=== PATIENT | female | born 1990 | race Caucasian/White ===

== ENCOUNTER 2023-06-13 16:42 | Outpatient (REF) | payer MEDICAID, SELFPAY ==
[2023-06-13 15:54] LABS: Hemoglobin A1C 4.7 % (<5.7)
[2023-06-13 15:56] LABS: ALT 20 U/L (14-59); AST 20 U/L (15-37); Albumin 4.3 g/dL (3.4-5.0); Alkaline Phosphatase 59 U/L (46-116); Anion Gap 7.7 mmol/L (3-11); BUN 16 mg/dL (7-18); CO2 27.3 mmol/L (21.0-32.0); CREATININE 0.6 mg/dL (0.55-1.02); Calcium 9.5 mg/dL (8.5-10.1); Calculated LDL 106 mg/dL (<100); Chloride 105 mmol/L (98-107); Cholesterol 180 mg/dL (<200); Estimated GFR 122.99 (mL/min/1.73m2); Glucose 80 mg/dL (74-106); HDL Cholesterol 65 mg/dL (40-60); Potassium 4.1 mmol/L (3.5-5.1); Sodium 140 mmol/L (136-145); TSH (W/Ref FT4) 1.36 uIU/mL (0.36-3.74); Total Protein 8.2 g/dL (6.4-8.2); Triglyceride 45 mg/dL (<150)
[2023-06-13 22:38] LABS: Hepatitis C Ab w Rflx HCV PCR Negative (Negative)
[2023-06-13 22:43] LABS: HIV-1/2 Ag & Ab Screen Negative (Negative)
[2023-06-14 11:39] LABS: Syphilis Serology (RPR) Negative (Negative)
[2023-06-14 14:53] LABS: Chlamydia Result Negative (Negative); GC Result Negative (Negative)
== END 2023-06-13 16:43 | disposition home or self-care (01) ==
LOC: NCHCN 16:42
PROVIDERS: Referring Provider Nurse Practitioner Family; Visit Provider Nurse Practitioner Family
DX: Z13.220 Encounter for screening for lipoid disorders (principal); Z13.1 Encounter for screening for diabetes mellitus; Z11.59 Encounter for screening for other viral diseases
CPT/HCPCS: 80053; 80061; 86803; 87389; 87491; 87591; 83036; 84443; 86592

== ENCOUNTER 2023-08-26 12:25 | Outpatient (REF) | payer MEDICAID, SELFPAY ==
--- NOTE | 2023-08-26 11:45 | PAPFT_PTH ---
PATIENT: Anisa Farmer LOC: NCN #:[id number] AGE/SX: 33/F ROOM: RE08/26/[address]: LAISHA ERAZO : 1990 BED: DIS: 08/26/2023 SPEC #: [id number] RECD: 08/26/23 18:10 STATUS: LTEY REQ #: [id number] CARLEE: 08/26/23 11:[address]: Laisha Erazo DEPT: [facility] Cytology RECD BY: Morena Valencia Tissues: 1 - CX/ENDOCX FOR PAP SMEARS Procedures: PAP THIN PREP/UVM Screening HPV DNA PROBE Comments: [id number]
== END 2023-08-26 12:26 | disposition home or self-care (01) ==
LOC: NCHCN 12:25
PROVIDERS: PCP Nurse Practitioner Family; Visit Provider Nurse Practitioner Family
DX: Z00.00 Encounter for general adult medical examination without abnormal findings (principal); Z12.4 Encounter for screening for malignant neoplasm of cervix; Z11.51 Encounter for screening for human papillomavirus (HPV)
CPT/HCPCS: 88142; 87624

== ENCOUNTER 2024-05-04 13:21 | Observation (INO) | payer BC, MEDICAID, SELFPAY ==
[2024-05-04] VITALS (8 sets, daily range): BP systolic 119–145; BP diastolic 84–106; PULSE 68–87; RESP 12–16; TEMP 36.4–37.4; O2SAT 95–100
--- NOTE | 2024-05-04 13:30 | RT.EKG_ITS ---
APPROVED REPORT Exam: Resting ECG Reason for Exam: Left weakness Patient Location: E HR:80 bpm ECG Measurements Heart Rate 80 AXIS SD 136 P 81 QRSd 83 QRS 75 QT 351 T 57 QTc 406 Conclusion Sinus rhythm...normal P axis, V-rate 60- 99 No STEMI
--- NOTE | 2024-05-04 13:30 | DI.CT_ITS ---
Exam(s) CT BRAIN NECK CTA EXAM: CT BRAIN NECK CTA CLINICAL HISTORY: Left-sided weakness. TECHNIQUE: Imaging Protocol: Axial CT angiography was performed with multi-slice acquisition and mu lti-planar and MIP reconstructions. CONTRAST MATERIAL: Intravenous: Omnipaque 350 Contrast volume:70 ml COMPARISON: No exams were available for comparison FINDINGS: CT Head W/O and W contrast: Ventricles and Extra axial spaces: Normal in size and morphology for the patient's age. Hemorrhage: None. Cerebral parenchyma: No evidence of acute infarct or mass. Midline shift: None. Brainstem/Cerebellum: No acute findings.. Calvarium: Normal. Visualized Paranasal sinuses/Mastoids: Clear. Soft Tissues: Unremarkable. Enhancement: Normal. Venous sinuses are patent. CTA Brain W: Internal Carotid Arteries: Petrous: Normal. Cavernous: Normal. Cerebral: Normal. Middle Cerebral Arteries: Right: No aneurysm, occlusion or significant stenosis. Left: No aneurysm, occlusion or significant stenosis. Anterior Cerebral Arteries: Right: No aneurysm, occlusion or significant stenosis. Left: No aneurysm, occlusion or significant stenosis. Posterior cerebral Arteries: Right: No aneurysm, occlusion or significant stenosis. Left: No aneurysm, occlusion or significant stenosis. Vertebral Arteries: Right: No aneurysm, occlusion or significant stenosis. Left: No aneurysm, occlusion or significant stenosis. Basilar Artery: No aneurysm, occlusion or significant stenosis. CTA Neck W: Common Carotid: Right: No dissection, occlusion or significant stenosis. Left: No dissection, occlusion or significant stenosis. External Carotid: Right: No dissection, occlusion or significant stenosis. Left: No dissection, occlusion or significant stenosis. Internal Carotid: Right: No dissection, occlusion or significant stenosis. Left: No dissection, occlusion or significant stenosis. Vertebral Artery: Right: No dissection, occlusion or significant stenosis. Left: No dissection, occlusion or significant stenosis. Lung Apices: No acute findings. Bones: No acute abnormality. Soft Tissues: Normal. IMPRESSION: 1. CTA brain: Normal CTA examination of the [place]. 2. Head CT: Unremarkable CT Head. 3. CTA neck: Normal CTA examination of the neck. RADIATION DOSE DELIVERED: 1,951.61mGy.cm Total DLP DATA REPOSITORY: All CT scans at this facility are submitted to the National Radiology Data Registry (NRDR) Dose Index Registry (DIR) with the [employer] (A[employer]). RADIATION OPTIMIZATION: All CT scans at this facility use at least one of these dose optimization te chniques: automated exposure control; mA and/or kV adjustment per patient size (includes targeted exa ms where dose is matched to clinical indication); or iterative reconstruction.
--- NOTE | 2024-05-04 13:30 | DI.RAD_ITS ---
Exam(s) XR CHEST 2V PA LATERAL EXAM: XR CHEST 2V PA LATERAL CLINICAL HISTORY: Left weakness TECHNIQUE: 2D digital imaging was performed. Two views. COMPARISON: No exams were available for comparison FINDINGS: HEART: Normal size. Aorta: Not dilated. PULMONARY VASCULATURE: Normal. MEDIASTINUM: Unremarkable. LUNGS: Clear. PLEURAL SPACE: No pleural effusion or pneumothorax. BONE:Unremarkable for age. SOFT TISSUES: There is contrast in the right renal collecting system related to recent head CT. The collecting system appears somewhat dilated. Findings could be acute or chronic. Clinical correlatio n recommended. IMPRESSION: No acute abnormality in the chest. Dilated right renal collecting system. Ultrasound or CT could be performed for further evaluation. DATA REPOSITORY: RADIATION DOSE DELIVERED:
--- NOTE | 2024-05-04 13:33 | W.ED.GENAD ---
Discharge Plan Discharge Details Chief Complaint: CVA/TIA Admit Date/Time: 05/04/24 15:55 Admit Provider: Wesly Maria Attending Provider: Wesly Maria Primary Care Provider: Laisha Erazo ED Provider: Antonio Perry Discharge Data Discharge Date/Time-TO BE ENTERED AT DEPARTURE: 05/04/24 16:38 HPI General Date/Time Provider Initiated Documentation: 05/04/24 13:30. HPI Narrative: MDM This is an overall very well-appearing previously healthy 33-year-old female with concerns for TIA for which she will undergo MRI. I spoke with neurology and they advised clopidogrel load along with aspirin. Patient is not a tPA candidate given her resolved symptoms. MS is certainly in the differential based on the patient's age and sex. No tonic-clonic activity to suggest increased risk for seizure though neurology advises EEG. No nuchal rigidity to suggest meningitis and no indication for lumbar puncture. Patient will certainly benefit from an echocardiogram to assess for ASD. Her electrolytes and labs reassuring. Chest x-ray was reassuring and so my suspicion is low for dissection in the absence of chest pain. I spoke with Dr. Maria from the hospitalist team who graciously agreed to accept the patient for hospitalization. Chronic conditions affecting the care of the patient: N/A History obtained from an outside historian: Patient's External record review: N/A [Diagnostic interpretations performed by me: Per my independent interpretation chest x-ray shows: No acute cardiopulmonary process. Contrast right renal collecting system Per my independent interpretation EKG shows: Narrow complex normal sinus rhythm at a rate of 80. Normal axis. Intervals within normal limits. No acute injury pattern. No prior for comparison. ]Medications: Aspirin clopidogrel Social determinants of health affecting disposition: N/A Management discussed with: Neurology hospitalist Treatment/interventions considered: N/A Response to therapies provided: N/A HPI The patient presents for evaluation of left foot weakness. She is accompanied by her . She reports a sensation of heaviness in her left foot upon standing and attempting to ambulate. Her corroborates this, noting that she had communicated with him from her workplace, expressing discomfort and a generalized feeling of heaviness on the left side of her body. She experienced a transient episode of staggering to the left after a brief period of sitting. Although the intensity of these symptoms has since diminished, she continues to experience a residual sensation of heaviness. This is a novel experience for her, with no prior history of similar episodes. She does not have any known hypertension and is not on any regular medication regimen. Her immunization status is up-to-date. She reports no chest pain. She has no personal history of diabetes or hypercholesterolemia, although she acknowledges a significant family history of these conditions. Her health status was unremarkable yesterday and earlier this morning. She currently feels slightly unwell. She describes a sensation omi to pins and needles in her foot but reports no recent falls or head trauma. The onset of these symptoms was around 12:57 PM today. 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 She reports a significant family history of diabetes and high cholesterol. Exam General: Well-appearing in no acute distress speaking in complete sentences. Head: Normocephalic, atraumatic. Eye:[Pupils equal, round reactive to light.] Extraocular eye movements intact. No conjunctival injection. No scleral icterus. Ear, nose, mouth, throat: Grossly normal inspection. Normal voice, handling secretions normally. Neck: Trachea midline. Cardiovascular: Well-perfused distal extremities. Regular rate and rhythm. Respiratory: Nonlabored respiration. Clear lungs bilaterally. Gastrointestinal: Nondistended abdomen. Musculoskeletal: No edema. Moving all 4 extremities spontaneously. Skin: Normal for age and race, grossly normal temperature and turgor. No acute rash. Neurologic: Alert and appropriate, no apparent acute deficits. GCS 15. Cranial nerves II to XII intact grossly. 5 out of 5 bilateral upper lower extremity strength. Psychiatric: Mood and manner are appropriate. Grooming and personal hygiene are appropriate. Related Data Home Medications ?Medication ?Instructions ?Recorded ?Confirmed Unknown [No Known Home Meds] 05/04/24 05/04/24 Allergies Allergy/AdvReac Type Severity Reaction Status Date / Time No Known Allergies Allergy Unverified 05/04/24 13:31 General Stated Complaint: CVA/TIA MIKE: 3 Course Vital Signs Vital signs: Vital Signs Temperature 36.4 C 05/04/24 13:22 Pulse 86 05/04/24 13:22 Respiratory Rate 12 05/04/24 13:22 Blood Pressure 145/106 H 05/04/24 13:22 Pulse Oximetry 99 05/04/24 13:22 Temperature 36.4 C 05/04/24 13:22 Temperature Source Oral 05/04/24 13:22 Pulse 86 05/04/24 13:22 Respiratory Rate 12 05/04/24 13:22 Blood Pressure 145/106 H 05/04/24 13:22 Blood Pressure Position Sitting 05/04/24 13:22 Pulse Oximetry 99 05/04/24 13:22 Oxygen Delivery Method Room Air 05/04/24 13:22 Oxygen Flow Rate 0 05/04/24 13:22 Pain Level 0 05/04/24 13:22 Medical Decision Making Quality:SDOH Health Related Social Needs: No Data to Display PFSH All Active Problems (Updated 05/04/24 @ 20:02 by Viviana Aparicio NP) CVA (cerebral vascular accident) (Acute) Social History Smoking/Tobacco Use Status: Never Smoking risk assessment performed?: Yes Alcohol Intake: never Drug use: Never Substance use type: does not use Housing: house Do you feel safe at home: Yes Do you feel safe in your relationship?: Yes
[2024-05-04] MEDS: Omnipaque 350 MG/ML 100 ML BTL IJ (13:44)
[2024-05-04] MEDS: Normal Saline - Diluent 50 ML VIAL IJ (13:44)
[2024-05-04 13:58] LABS: Bilirubin Negative (Negative); Blood Negative (Negative); Clarity Clear (Clear); Glucose Negative (Negative); Ketones Negative (Negative); Leukocyte Esterase Negative (Negative); Nitrite Negative (Negative); Urobilinogen 0.2 mg/dL (Up to 0.2); pH 6.5 (5-8)
[2024-05-04 14:07] LABS: HCG Qual (Serum) Negative
[2024-05-04 14:10] LABS: Prothrombin Time 10.5 sec (9.1-11.1)
[2024-05-04 14:29] LABS: Anion Gap 6.2 mmol/L (3-11); BUN 14 mg/dL (7-18); CO2 31.8 mmol/L (21.0-32.0); CREATININE 0.8 mg/dL (0.55-1.02); Calcium 9.8 mg/dL (8.5-10.1); Chloride 104 mmol/L (98-107); Estimated GFR 100.33 (mL/min/1.73m2); Glucose 103 mg/dL (74-106); Potassium 3.4 mmol/L (3.5-5.1); Sodium 142 mmol/L (136-145); Troponin I 4 ng/L (<or=51)
[2024-05-04 14:31] LABS: ETHANOL BLOOD < 3.0 mg/dL (<10)
--- NOTE | 2024-05-04 14:45 | DI.MRI_ITS ---
Exam(s) MR BRAIN WO/W EXAM: MR BRAIN WO/W CLINICAL HISTORY: left-sided weakness TECHNIQUE: Multiplanar multisequence MRI of the brain was performed. CONTRAST MATERIAL: IV Contrast: 8 mL of [place] contrast administered. COMPARISON: CT CT BRAIN NECK CTA from 05/04/2024 FINDINGS: VENTRICLES AND EXTRA AXIAL SPACES: Normal in size and morphology for the patient's age. HEMORRHAGE: None. CEREBRAL PARENCHYMA: There is a single punctate focus of restricted diffusion in the right parietal l obe just superior to the lateral ventricle. No space-occupying lesion identified. MIDLINE SHIFT: None. BRAINSTEM/CEREBELLUM: Normal. CALVARIUM: Normal. ENHANCEMENT: No suspicious enhancement identified. VISUALIZED PARANASAL SINUSES/MASTOIDS: Mucous retention cysts or polyps are seen in the maxillary sin uses bilaterally. [place]: Normal flow void. PIT[place]ARY GLAND: Unremarkable. OTHER FINDINGS: IMPRESSION: 1. Small 3 mm focus of restricted diffusion in the high right parietal lobe suspicious for an acute i nfarct. 2. Findings were discussed with Dr. Perry at 4:20 p.m. on 05/04/2024. DATA REPOSITORY:
[2024-05-04] MEDS: Aspirin 81 MG CHEW PO (15:14)
[2024-05-04] MEDS: Clopidogrel 300 MG TAB PO (15:14)
[2024-05-04] MEDS: Gadoterate meglumine 20 ML SYRINGE 8 ML IVP (15:35)
[2024-05-04] MEDS: Normal Saline Flush 10 ML SYR IVP (15:36)
[2024-05-04] MEDS: Potassium Chloride 20 MEQ TABCR PO (16:17)
[2024-05-04 17:17] LABS: HCT 38.9 % (36.0-46.0); HGB 13.3 g/dL (11.2-15.7); MCH 32.8 pg (27.0-33.0); MCHC 34.2 % (32.0-36.0); MCV 96 fL (80-95); MPV 10.7 fL (8.0-11.0); Platelet Count 274 10^3/uL (130-400); RBC 4.05 10^6/uL (3.93-5.22); RDW 10.8 % (11.7-14.6); RDW-SD 38.6 fL; WBC 5.36 10^3/uL (4.4-10.8)
--- NOTE | 2024-05-04 17:23 | W.PC.ACHO ---
Registration Status: Primary Language: Preferred Language: ED Information & Data Chief Complaint CVA/TIA 05/04/24 13:33 Triage Note Patient felt like L side was 05/04/24 13:22 heavy about 1130ish. Sx are resolving, no speech impediment, no ams, no facial drooping. was slightly nauseous when she stood up and felt this for a moment. Most Recent Vital Signs Temperature 37.1 C 05/04/24 17:05 Temperature Source Oral 05/04/24 13:22 Pulse 68 05/04/24 17:05 Pulse Rhythm Regular 05/04/24 16:48 Respiratory Rate 16 05/04/24 17:05 Respiratory Effort Normal, Non-Labored 05/04/24 16:48 Respiratory Depth Normal 05/04/24 16:48 Respiratory Pattern Normal 05/04/24 16:48 Blood Pressure 128/99 H 05/04/24 17:05 Blood Pressure Position Sitting 05/04/24 13:22 Pulse Oximetry 95 05/04/24 17:05 Oxygen Delivery Method Room Air 05/04/24 17:05 Oxygen Flow Rate 0 05/04/24 17:05 Pain Level 0 05/04/24 17:05 Allergies No Known Allergies Allergy (Unverified 05/04/24 13:31) Precautions Isolation Standard precaution 05/04/24 13:29 Active Medications Generic Name Dose Route Start Last Admin Trade Name Freq PRN Reason Stop Dose Admin Aspirin 81 mg 05/05/24 08:30 05/04/24 15:14 Aspirin 81 Mg Chew PO 81 mg DAILY KIRSTEN Administration Gadoterate Meglumine 8 ml 05/04/24 15:45 05/04/24 15:35 Gadoterate Meglumine 20 Ml Syringe IVP 06/03/24 23:59 8 ml DIRECTED KIRSTEN Administration Iohexol 100 ml 05/04/24 13:45 05/04/24 13:44 Omnipaque 350 Mg/Ml 100 Ml Btl IJ 06/03/24 23:59 70 ml DIRECTED KIRSTEN Administration Sodium Chloride 50 ml 05/04/24 13:45 05/04/24 13:44 Normal Saline - Diluent 50 Ml Vial IJ 50 ml .FOR DI USE KIRSTEN Administration Sodium Chloride 0 ml 05/04/24 15:36 05/04/24 15:36 Normal Saline Flush 10 Ml Syr IVP 10 ml PRN PRN Administration IV IV Catheter Type [Right Peripheral IV Antecubital] IV Catheter Gauge [Right 18 Antecubital] Diet Orders Category Date Time Status Heart Healthy Eating [DIET] Nutrition 05/04/24 Dinner Active Diagnostics 05/04/24 05/04/24 05/04/24 Range/Units 16:33 14:33 13:45 WBC (4.4-10.8) 10^3/uL RBC (3.93-5.22) 10^6/uL Hgb (11.2-15.7) g/dL Hct (36.0-46.0) % MCV (80-95) fL MCH (27.0-33.0) pg MCHC (32.0-36.0) % RDW (11.7-14.6) % Plt Count (130-400) 10^3/uL MPV (8.0-11.0) fL PT (9.1-11.1) sec INR (0.9-1.1) Sodium (136-145) mmol/L Potassium (3.5-5.1) mmol/L Chloride (98-107) mmol/L Carbon Dioxide (21.0-32.0) mmol/L Anion Gap (3-11) mmol/L BUN (7-18) mg/dL Creatinine (0.55-1.02) mg/dL Est GFR (CKD-EPI 2020) (mL/min/1.73m2) Glucose (74-106) mg/dL Calcium (8.5-10.1) mg/dL Troponin I Cancelled Cancelled (<or=51) ng/L TSH (0.36-3.74) uIU/mL Serum HCG, Qual Urine Color Yellow (Yellow) Urine Clarity Clear (Clear) Urine pH 6.5 (5-8) Ur Specific [place] 1.010 (1.005-1.025) Urine Protein Negative (Neg-Trace) mg/dL Urine Ketones Negative (Negative) mg/dL Urine Blood Negative (Negative) Urine Nitrite Negative (Negative) Urine Bilirubin Negative (Negative) Urine Urobilinogen 0.2 (Up to 0.2) mg/dL Ur Leukocyte Esterase Negative (Negative) Urine Glucose Negative (Negative) mg/dL Ethyl Alcohol (<10) mg/dL 05/04/24 Range/Units 13:40 WBC 5.36 (4.4-10.8) 10^3/uL RBC 4.05 (3.93-5.22) 10^6/uL Hgb 13.3 (11.2-15.7) g/dL Hct 38.9 (36.0-46.0) % MCV 96 H (80-95) fL MCH 32.8 (27.0-33.0) pg MCHC 34.2 (32.0-36.0) % RDW 10.8 L (11.7-14.6) % Plt Count 274 (130-400) 10^3/uL MPV 10.7 (8.0-11.0) fL PT 10.5 (9.1-11.1) sec INR 1.0 (0.9-1.1) Sodium 142 (136-145) mmol/L Potassium 3.4 L (3.5-5.1) mmol/L Chloride 104 (98-107) mmol/L Carbon Dioxide 31.8 (21.0-32.0) mmol/L Anion Gap 6.2 (3-11) mmol/L BUN 14 (7-18) mg/dL Creatinine 0.8 (0.55-1.02) mg/dL Est GFR (CKD-EPI 2020) 100.33 (mL/min/1.73m2) Glucose 103 (74-106) mg/dL Calcium 9.8 (8.5-10.1) mg/dL Troponin I 4 (<or=51) ng/L TSH 1.30 (0.36-3.74) uIU/mL Serum HCG, Qual Negative Urine Color (Yellow) Urine Clarity (Clear) Urine pH (5-8) Ur Specific [place] (1.005-1.025) Urine Protein (Neg-Trace) mg/dL Urine Ketones (Negative) mg/dL Urine Blood (Negative) Urine Nitrite (Negative) Urine Bilirubin (Negative) Urine Urobilinogen (Up to 0.2) mg/dL Ur Leukocyte Esterase (Negative) Urine Glucose (Negative) mg/dL Ethyl Alcohol < 3.0 (<10) mg/dL Intake and Output - 24 Hour Total 05/04/24 13:21 thru 05/04/24 16:48 Weight 42.6 kg Other: Urine Appearance Clear Falls Risk Assessment History of Falls No History 05/04/24 16:48 Contributing Factors No Factors 05/04/24 16:48 Ambulatory Aids Independent 05/04/24 16:48 Tubes/Lines W/no contributing factors 05/04/24 16:48 Gait Evaluation No gait disturbance 05/04/24 16:48 Cognition No cognitive impairment 05/04/24 16:48 Fall Total Score 10 05/04/24 16:48 Level of Risk Standard/Low Risk 05/04/24 16:48 v v v v v v v v v Sending and/or Receiving Nurses: Please use comment section below to note any information pertinent to the patient hand-off not included above. Information / Comments: Report received from: Corrina Gan 05/04/24
--- NOTE | 2024-05-04 17:41 | W.PM.HP.N ---
Date of service: 05/04/24 Time of Service: 17:41 Assessment and Plan Assessment and plan (1) CVA (cerebral vascular accident): Status: Acute Assessment and plan: MRI - . Small 3 mm focus of restricted diffusion in the high right parietal lobe suspicious for an acute infarct. CT brain and neck: 1. CTA brain: Normal CTA examination of the [place]. 2. Head CT: Unremarkable CT Head. 3. CTA neck: Normal CTA examination of the neck. Tele neuro consult not a candidate for TPA or thrombectomy - no sx and NIHSS 0 Follow recommendations, aspirin, plavix, echo, EEG, lipid profile. Echo, carotid US pending Neuro checks History of Present Illness History of Present Illness Chief Complaint: Left side heaviness Narrative: The patient is a 33-year-old right-handed female who presents for evaluation of left foot weakness. She describes a sensation of heaviness in her left foot, particularly when standing or attempting to walk. Her corroborates this, noting that she communicated from her workplace about discomfort and a generalized feeling of heaviness on the left side of her body. She also experienced a transient episode of staggering to the left after sitting for a brief period. Although the intensity of these symptoms has diminished, she continued to experience some residual heaviness. This is a novel experience for her, with no prior similar episodes. She denies any recent falls or head trauma. The onset of symptoms was sudden, occurring at 12:00 PM while she was working at her computer. The symptoms included difficulty walking, a sensation of heaviness, and effortful ambulation. The symptoms resolved completely within 40 minutes, and she had no deficits at the time of examination. The patient has no known history of hypertension, diabetes, or hypercholesterolemia, although she reports a significant family history of these conditions. She is not on any regular medication regimen. Her immunization status is up-to-date, and she reports no chest pain or other associated symptoms. She feels slightly unwell and describes a sensation of pins and needles in her left foot. The intensity of these sensations is much less than at the time of onset. She denies ever smoking cigarettes, using a vape or drug use. She presented to the [facility] ED for evaluation. A thorough neurologic exam was performed, and her NIH stroke scale was 0. A normal neurological exam was noted, and given the lack of deficits, she was not considered a candidate for thrombolytics or thrombectomy. A teleneuro consultation was completed. Imaging studies were conducted, including: CTA brain: Normal, with no abnormalities noted in the [place]. Head CT: Unremarkable. CTA neck: Normal. MRI brain: Notable for a small (3 mm) focus of restricted diffusion in the high right parietal lobe, which is suspicious for an acute infarct. Given the resolution of symptoms, the patient was placed on observation status on the medical floor for further testing and monitoring. She is a full code. Review of Systems All systems reviewed & are unremarkable except as noted in HPI and below PFSH All Active Problems (Updated 05/04/24 @ 20:02 by Viviana Aparicio NP) CVA (cerebral vascular accident) (Acute) Social History Smoking/Tobacco Use Status: Never Smoking risk assessment performed?: Yes Alcohol Intake: never Drug use: Never Substance use type: does not use Housing: house Do you feel safe at home: Yes Do you feel safe in your relationship?: Yes Meds Allergies and Home Medications Allergies Allergy/AdvReac Type Severity Reaction Status Date / Time No Known Allergies Allergy Unverified 05/04/24 13:31 Home Medications ?Medication ?Instructions ?Recorded ?Confirmed ?Type aspirin 81 mg chewable tablet 81 mg PO DAILY #20 tabs 05/05/24 Rx clopidogrel 75 mg tablet (Plavix) 75 mg PO DAILY #20 tabs 05/05/24 Rx Exam Narrative Exam Narrative: Const General: no acute distress Nutritional Appearance: average body habitus [facility] Head: normocephalic Ears: external ears normal and no periauricular adenopathy General nose exam: nasal mucous membranes and turbinates normal Face and sinus: sinuses nontender Mouth: oropharynx normal and moist mucous membranes Teeth and gingiva: dentition normal Eyes General: appearance normal, both eyes and all related structures Pupils: PERRL Neck Neck: normal visual inspection and no lymphadenopathy Chest Chest: normal inspection of the chest Resp Effort & Inspection: normal respiratory effort Auscultation: no rales, no rhonchi and no wheezes expiratory Cardio Rate: tachycardic Rhythm: regular rhythm Heart Sounds: S1 normal, S2 normal and no murmurs Pulses: radial pulses present bilaterally GI Inspection: normal to inspection Palpation: soft Skin General skin exam: no rashes or lesions noted Neuro General: patient alert, patient awake and patient oriented x3 Extrem General: no clubbing, cyanosis or edema Psych Mental Status: mental status grossly normal Affect: normal affect Attitude: cooperative Results Labs 05/05/24 06:30 05/05/24 06:30 Labs: Laboratory Results - last 24 hr 05/04/24 05/04/24 05/04/24 13:40 13:45 14:33 WBC 5.36 RBC 4.05 Hgb 13.3 Hct 38.9 MCV 96 H MCH 32.8 MCHC 34.2 RDW 10.8 L Plt Count 274 MPV 10.7 PT 10.5 INR 1.0 Sodium 142 Potassium 3.4 L Chloride 104 Carbon Dioxide 31.8 Anion Gap 6.2 BUN 14 Creatinine 0.8 Est GFR (CKD-EPI 2020) 100.33 Glucose 103 Calcium 9.8 Troponin I 4 Cancelled TSH 1.30 Serum HCG, Qual Negative Urine Color Yellow Urine Clarity Clear Urine pH 6.5 Ur Specific [place] 1.010 Urine Protein Negative Urine Ketones Negative Urine Blood Negative Urine Nitrite Negative Urine Bilirubin Negative Urine Urobilinogen 0.2 Ur Leukocyte Esterase Negative Urine Glucose Negative Ethyl Alcohol < 3.0 05/04/24 16:33 WBC RBC Hgb Hct MCV MCH MCHC RDW Plt Count MPV PT INR Sodium Potassium Chloride Carbon Dioxide Anion Gap BUN Creatinine Est GFR (CKD-EPI 2020) Glucose Calcium Troponin I Cancelled TSH Serum HCG, Qual Urine Color Urine Clarity Urine pH Ur Specific [place] Urine Protein Urine Ketones Urine Blood Urine Nitrite Urine Bilirubin Urine Urobilinogen Ur Leukocyte Esterase Urine Glucose Ethyl Alcohol Last Vital Signs Temp 37.1 C 05/04/24 17:05 Pulse 68 05/04/24 17:05 Resp 16 05/04/24 17:05 BP 128/99 H 05/04/24 17:05 Pulse Ox 95 05/04/24 17:05 Time Spent Time spent with Patient: 55-74 minutes Time was spent: preparing to see the patient(eg.review tests), ordering medications,tests, procedures, referring, communicating with other health animal care service worker, indepentently interpreting results, counseling the patient and care coordination
[2024-05-04 20:31] LABS: Calculated LDL 90 mg/dL (<100); Cholesterol 183 mg/dL (<200); HDL Cholesterol 82 mg/dL (40-60); Triglyceride 55 mg/dL (<150)
[2024-05-05 03:33] VITALS: BP 120/80; PULSE 83; RESP 18; TEMP 37.6; O2SAT 99
[2024-05-05 06:51] LABS: Abs Immature Grans 0.01 10^3/uL (0.0-0.06); Absolute Basophil Count 0.04 10^3/uL (0.0-0.2); Absolute Eosinophil Count 0.27 10^3/uL (0.0-0.7); Absolute Lymphocyte Count 1.99 10^3/uL (1.2-3.4); Absolute Monocyte Count 0.25 10^3/uL (0.1-0.8); Absolute Neutrophil Count 1.63 10^3/uL (1.2-6.7); Eosinophils % 6.4 %; HCT 37.9 % (36.0-46.0); HGB 13.1 g/dL (11.2-15.7); Immature Grans % 0.2 %; Lymphocytes % 47.5 %; MCH 32.7 pg (27.0-33.0); MCHC 34.6 % (32.0-36.0); MCV 95 fL (80-95); MPV 10.6 fL (8.0-11.0); Neutrophils % 38.9 %; Platelet Count 231 10^3/uL (130-400); RBC 4.01 10^6/uL (3.93-5.22); RDW 10.6 % (11.7-14.6); RDW-SD 37.4 fL; WBC 4.19 10^3/uL (4.4-10.8)
[2024-05-05 07:06] LABS: Anion Gap 5.2 mmol/L (3-11); BUN 13 mg/dL (7-18); CO2 27.8 mmol/L (21.0-32.0); CREATININE 0.7 mg/dL (0.55-1.02); Calcium 8.4 mg/dL (8.5-10.1); Chloride 107 mmol/L (98-107); Estimated GFR 117.77 (mL/min/1.73m2); Glucose 83 mg/dL (74-106); Magnesium 1.7 mg/dL (1.8-2.4); Potassium 4.4 mmol/L (3.5-5.1); Sodium 140 mmol/L (136-145)
[2024-05-05 07:49] VITALS: BP 117/82; PULSE 85; RESP 18; TEMP 37.1; O2SAT 100
[2024-05-05] MEDS: Clopidogrel 75 MG TAB PO (08:58)
[2024-05-05] MEDS: Aspirin 81 MG CHEW PO (08:59)
--- NOTE | 2024-05-05 09:57 | DI.US_ITS ---
APPROVED REPORT EXAM: Comprehensive 2D, Doppler, and color-flow Echocardiogram Patient Location: In-Patient Room/Bed: [facility] Cell Geneticist: Jaz Daley RDCS (AE) Indications: CVA Echo Enhancing Agent Indication: Rule out Shunt Agent(s) / Amount(s) Used: Agitated Saline 30.0 cc Comments: Contrast study was performed with 3 IV injections of 10ccs of agitated normal saline, at [facility], with cough and post valsalva maneuver. Negative contrast study for shunt flow. Other Information Study Quality: Adequate Conclusion Normal left ventricular wall thickness and chamber size. Ejection fraction is 60%. Wall motion is n ormal Normal right ventricular size and function Both atria are normal in size No intracardiac shunting is identified with injection of agitated saline There is no structural or hemodynamically significant valvular disease Wall motion Left Ventricle The left ventricle is normal size. The left ventricular systolic function is normal. The left ventric ular ejection fraction is within the normal range. There is normal left ventricular wall thickness. T here is normal LV segmental wall motion. There is no ventricular septal defect visualized. LVEF is 60 %. Right Ventricle The right ventricle is normal size. The right ventricular systolic function is normal. Atria The left atrium size is normal. The right atrium size is normal. The interatrial septum is intact wit h no evidence for an atrial septal defect. Saline bubble contrast intravenous injection does not demo nstrate PFO. Aortic Valve The aortic valve is normal in structure. Aortic valve is trileaflet. There is no aortic valvular sten osis. No aortic regurgitation is present. Mitral Valve The mitral valve is normal in structure. No evidence of mitral valve stenosis. Trace mitral regurgita tion. Tricuspid Valve The tricuspid valve is normal in structure. There is no tricuspid valve stenosis. Trace tricuspid reg urgitation. The RVSP is 14.4 mmHg. Pulmonic Valve The pulmonary valve is normal in structure. There is no pulmonic valvular stenosis. There is no pulmo len valvular regurgitation. Great Vessels The aortic root is normal in size. Ascending aorta is not well visualized. Aortic arch is normal in c aliber. IVC is normal in size and collapses >50% with inspiration. Pericardium There is no pericardial effusion. 2D Dimensions IVSD d PLAX 0.70 cm F: 0.6-1.0 Ao Root d 2.46 cm F: 2.7 - 3.3 LVPW d PLAX 0.70 cm F: 0.6 - 1.0 LVID d PLAX 3.93 cm F: 3.8 - 5.2 LVDs 2.70 cm F: 2.2 - 3.5 LV EF Teichholz 61.1 % FS 32.23 % LV EDV (Teich) 67.0 mL LV ESV (Teich) 26.1 mL M-Mode TAPSE 1.66 cm (M/F) >1.7 Auto EF LV EDV A4C 69.0 mL LV EDV A2C 82.0 mL LV EDV BP 76.3 mL LV ESV A4C 27.7 mL LV ESV A2C 32.6 mL LV ESV BP 30.1 mL LVEF(%) A4C 59.8 % LVEF(%) A2C 60.3 % LVEF(%) BP 60.6 % LV SV A4C 41.3 ml LV SV A2C 49.4 ml LV SV BP 46.2 ml LV CO A4C 3.7 L/min LV CO A2C 4.0 L/min LV CO BP 3.9 L/min HR A4C 89.56 BPM HR A2C 81.63 BPM LV EDV Index (BP) LA Volume LA Length A4C 3.6 cm LA Length A2C LA Area A4C s 8.97 cm2 LA Area A2C s LA Vol A4C A-L 18.81 mL LA Vol A2C A-L LA Vol Biplane A-L LA Vol A4C MOD 17.6 mL LA Vol A2C MOD LA Vol BP MOD RA Volume RA Area A4C 8.5 cm2 RA ESV A4C (A-L) 17.2mL RA Vol/BSA A4C A-L RA Length A4C 3.6 cm RA ESV A4C (MOD) 15.9mL LV Diastology MV E' medial 0.123 (>0.07 m/s) MV E Vmax 0.83 (0.4-1.3 m/s) MV E/E' MED 6.78 (<14) MV A Vmax 0.70 (0.4-1.3 m/s) MV E' lateral 0.146 (>0.1 m/s) E/A Ratio 1.2 MV E/E' LAT 5.70 (<14) MV E' Average 0.135 m/s MV E/E'(average) 6.19 Aortic Valve AoV Vmax 1.09 m/s LVOT Vmax 1.00 m/s AoV Peak Grad 4.8 mmHg LVOT Peak Grad 4.0 mmHg AoV Area (Vmax) 2.42 cm2 LVOT VTI 0.160 m AoV VTI 0.200 m LVOT Mean Grad 1.9 mmHg AoV Mean Wei. 0.80 m/s LVOT SV 42.24 mL AoV Mean Grad 2.8 mmHg LVOT Diam s 1.80 cm AoV Area (VTI) 2.11 cm2 AV Regurg Peak Gr. 4.75 mmHg Velocity Ratio 0.92 Mitral Valve MV DT 187 (160-240 msec) MV Vmax TIPS 0.83 m/s MV Mean Grad 1.3 (<2mmHg) MV VTI 0.205 m Pulmonary Valve PV Vmax 0.82 (0.5-1.5 m/s) RVOT Vmax 0.72 m/s PV Peak Grad 2.7 mmHg RVOT Peak Gr. 2.0 mmHg PV Mean Wei 0.57 m/s RVOT VTI 0.149 m PV Mean Grad 1.5 mmHg RVOT Mean Gr. 1.4 mmHg Tricuspid Valve RA Pressure 3.00 mmHg TR Vmax 1.69 m/s TV S' 0.14 m/s TR Peak Grad 11.4 mmHg RVSP (TR) 14.4 mmHg
--- NOTE | 2024-05-05 10:11 | PDOC.CMIN ---
Date of service: 05/05/24 Time of Service: 10:12 Care Management Initial Assmt Initial Assessment Reason for Hospitalization: TIA Functional Status/Living Situation Town of Residence: [place] Resides with: Spouse (Bill) Employment Status: Employed ([employer]) Instrumental Activities of Daily Living (ADLs): Independent Medications Medication Management: No Issues/Barriers identified Advance Directives Advance Directives: Do you have an Advance Directive: N 05/04/24 13:[address] [facility]: N 05/04/24 13:26 Date Asked 05/04/24 05/04/24 13:26 AD Date Reviewed COLST On File at [facility] COLST Date Scanned Code Status Resuscitation Status Full Code Insurance Coverage/Financial Issues Insurance: BC/BS [facility] Care Team Visit Care Team Role Provider Type Laisha Erazo Primary Care Provider NURSE PRACTITIONER Antonio Perry MD Emergency Provider [facility] STAFF PHYSICIAN Wesly Maria MD Admit Provider [facility] STAFF PHYSICIAN Attending Provider Discharge Potential Discharge Needs: PCP F/U Appt Anticipated Barriers to Discharge: None Identified Patient/Family Education Needs: Review discharge instructions, discuss Ask Me Three Transportation: Private vehicle Plan: Anticipate Anisa will return home once medically cleared. Her will drive her home via private vehicle when ready. She will follow up with her PCP and discharge plan of care. CM will continue to follow. Social Determinants of Health Screening Social Determinants of Health last assessed: 05/05/24 Will the Patient Participate in the Screening?: Yes Do you worry about having a steady place to live?: no Problems where you live: no known problems In the past 12 months, have you had to go without electric, gas, oil or water in your home?: no Have you or anyone in your house had to go without enough food to eat?: no Has lack of transportation kept you from medical appointments or from doing things needed for daily living?: no Has anyone in your life made you feel unsafe or unsupported?: no How hard is it for you to pay for the very basics like food, housing, medical care, and heating? Would you say it is:: Not hard at all Do you want help finding or keeping work or a job?: I do not need or want help If for any reason you need help with day-to-day activities such as bathing, preparing meals, shopping, managing finances, etc., do you get the help you need?: I don?t need any help How often do you feel lonely or isolated from those around you?: Never Do you speak a language other than [place] at home?: No Does the patient want assistance with any of the above?: No PFSH All Active Problems (Updated 05/04/24 @ 20:02 by Viviana Aparicio NP) CVA (cerebral vascular accident) (Acute) Social History Smoking/Tobacco Use Status: Never Smoking risk assessment performed?: Yes Alcohol Intake: never Drug use: Never Substance use type: does not use Housing: house Do you feel safe at home: Yes Do you feel safe in your relationship?: Yes
--- NOTE | 2024-05-05 10:40 | DI.US_ITS ---
Exam(s) US CAROTID EXAM: US CAROTID CLINICAL HISTORY: CVA. TECHNIQUE: Ultrasound carotids performed using grayscale, color-flow, and spectral Doppler imaging. COMPARISON: MR MR BRAIN WO/W from 05/04/2024 FINDINGS: RIGHT CAROTID ARTERY: Plaque: No visible plaque Velocity elevation: None. LEFT CAROTID ARTERY: Plaque: No visible plaque Velocity elevation: None. VERTEBRAL ARTERIES: Antegrade flow. Measurements: R Bulb: 63.5cm/s PS / 26.8cm/s ED R CCA: 92.9cm/s PS / 36.6cm/s ED R ECA: 119.9cm/s PS / 16.2cm/s ED R ICA Prox: 103cm/s PS / 30.6cm/s ED R ICA Mid: 99cm/s PS / 46.7cm/s ED R ICA Distal: 110.7cm/s PS /58.9cm/s ED R Vert: 60cm/s PS / 20.7cm/s ED R SVR: 1.2 R DVR: 1.6 L Bulb: 56.7cm/s PS / 27.2cm/s ED L CCA: 90.6cm/s PS / 36cm/s ED L ECA: 96.3cm/s PS / 21.6cm/s ED L ICA Prox: 64.4cm/s PS / 24cm/s ED L ICA Mid: 88cm/s PS / 46.8cm/s ED L ICA Distal: 117.9cm/s PS / 57.7cm/s ED L Vert: 58.8cm/s PS / 23.1cm/s ED L SVR: 1.3 L DVR: 1.6 IMPRESSION: No evidence for hemodynamically significant carotid stenosis. Criteria for Carotid Stenosis: Normal: ICA PSV <125 cm/s no plaque or intimal thickening is visible. <50% stenosis: ICA PSV <125 cm/s and plaque or intimal thickening is visible. 50-69% stenosis: ICA PSV is 125-250 cm/s and plaque is visible. >70% stenosis to near occlusion: ICA PSV >250 cm/s with visible plaque and luminal narrowing. DATA REPOSITORY:
[2024-05-05 11:27] VITALS: BP 117/86; PULSE 75; RESP 18; TEMP 37.6; O2SAT 100
--- NOTE | 2024-05-05 11:59 | DSE_ITS ---
Date of service: 05/05/24 Time of Service: 11:59 DS: Diagnosis Discharge Diagnosis (1) CVA (cerebral vascular accident): Status: Acute Discharge Plan Disposition Patient Disposition: Home Condition: Good Discharge Details Reason For Visit: TIA Workup Admit Date/Time: 05/04/24 15:55 Admit Provider: Wesly Maria Attending Provider: Wesly Maria Primary Care Provider: Laisha Erazo Hospital Course Hospital Course: Discharge Diagnosis: * Acute ischemic stroke, high right parietal lobe, with resolved symptoms Hospital Course: The patient, a 33-year-old right-handed female, presented to the emergency department with complaints of left foot weakness and a sensation of heaviness. The symptoms began suddenly at approximately 12:00 PM while at work, with difficulty walking and a transient episode of staggering after sitting. These symptoms completely resolved within 40 minutes. A thorough neurological exam revealed no deficits, and her NIH stroke scale was 0. Imaging studies, including a normal CTA brain, unremarkable head CT, and normal CTA neck, were conducted. However, an MRI of the brain revealed a small 3 mm focus of restricted diffusion in the high right parietal lobe, which was consistent with an acute infarct. The patient was evaluated by neurology via telemedicine consultation, and the decision was made to begin antiplatelet therapy and observe her closely. She was given Clopidogrel 300 mg and aspirin 81 mg in the emergency department. Given the lack of persistent deficits and complete resolution of symptoms, the patient was not a candidate for thrombolytics or thrombectomy. She was observed on the medical floor for further evaluation and monitoring. The patient?s symptoms fully resolved prior to admission. Neuro checks overnight were normal, and she reported no headache, heaviness, or other complaints.. Echocardiogram: EF 60%; no intracardiac shunting. Bilateral carotid US: No evidence for hemodynamically significant carotid stenosis. Medications at Discharge: * Aspirin (ASA) 81 mg daily for the next 3 weeks * Plavix (Clopidogrel) 75 mg daily for the next 3 weeks * Atorvastatin 40 mg every night until changed by your PCP. Follow-up: * Follow-up with neurology for reassessment and further management. Neurology referral sent. Instructions: * The patient is instructed to continue her medications as prescribed, Plavix and aspirin. * Discussed with Dr Clinton, SCIENCE EDUCATION PROFESSOR - it is ok for the Nexplanon to remain in place (it is progesterone) - no medications with estrogen. * She is advised to avoid any activities that could increase the risk of falls or injury, including driving, until cleared by her provider. * If any new neurological symptoms occur, such as weakness, numbness, speech difficulties, or worsening headaches, she should seek immediate medical attention. * She is encouraged to follow up with her primary care physician and neurologist for continued management and monitoring. Disposition: The patient is discharged home with her , in stable condition. Patient Education: The patient was educated on the importance of adhering to her antiplatelet therapy and the need for follow-up care. She was advised on signs and symptoms of stroke and instructed to seek emergency care if any new neurological deficits arise. Home Meds and New Rx's Prescriptions: New aspirin 81 mg tablet,chewable 81 mg PO DAILY Qty: 20 0RF clopidogrel [Plavix] 75 mg tablet 75 mg PO DAILY Qty: 20 0RF atorvastatin 40 mg tablet 40 mg PO QHS Qty: 30 0RF Discharge Instructions Instructions: Heart Healthy Diet, Stroke (DC) Additional Instructions: Start aspirin 81 mg and plavix 75 mg daily for 3 weeks. Start atorvastatin 40 mg daily. Follow up with PCP and neurology. Stand Alone Forms: Nursing Discharge Form Referrals: Laisha Erazo [Primary Care Provider] - 05/07/24 2:00 pm (S/P hospitalization for CVA Nexplanon is ok to stay per Dr Clinton SCIENCE EDUCATION PROFESSOR) Jessica Hyde MD [ [facility] STAFF PHYSICIAN] - (New CVA; remote hx of sz x 1 > 9 y ago CTA brain: Normal, with no abnormalities noted in the [place]. Head CT: Unremarkable. CTA neck: Normal. MRI brain: Notable for a small (3 mm) focus of restricted diffusion in the high right parietal lobe, which is suspicious for an acute infarct.) Activity:: Activity as Tolerated Equipment/Supplies:: No Equipment Needed Diet:: Heart Healthy Discharge Orders Discharge Orders: Discharge Order (Routine); Ordered 05/05/24 Ordered By: Viviana Aparicio Discharge Data Discharge Date/Time-TO BE ENTERED AT DEPARTURE: 05/05/24 13:05 DS: Summary Time Spent with Patient providing and/or coordinating discharge services: Greater than 30 minutes Status at Discharge Functional status at discharge: independent ambulation Overall status at discharge: patient is back to baseline Mental Status: mental status grossly normal Speech and Movement: speech and movement normal Mood: congruent mood Affect: normal affect Quality:SDOH Health Related Social Needs: No Data to Display Exam Narrative Exam Narrative: GEN: NAD, pleasant, cooperative CVS: RRR, no carotid bruit CHEST: No signs of? distress, on room air ABD: Soft, NTTP NEURO:? ? MENTAL STATUS:?AAOx3 ? LANG/SPEECH: Fluent, intact naming, repetition & comprehension ? CRANIAL NERVES: ? II: Pupils equal and reactive, no RAPD,?normal visual field and fundus ? III, IV, : EOM intact, no gaze preference or deviation ? V: normal ? VII: no facial asymmetry ? VIII: normal hearing to speech ? MOTOR: 5/5 in both upper and lower extremities ? REFLEXES: 2/4 throughout,?bilateral flexor plantars ? SENSORY: Normal to touch, temperature iin all extremiteis ? COORD: Normal finger to nose and heel to keating, no tremor, no dysmetria Psych Mental Status: mental status grossly normal Speech and Movement: speech and movement normal Mood: congruent mood Affect: normal affect DS: Data Vitals/I&O Vitals and I&O: Vital Signs Temperature 37.6 C H 05/05/24 11:27 Temperature Source Temporal Artery Scan 05/05/24 11:27 Pulse 75 05/05/24 11:27 Pulse Rhythm Regular 05/04/24 16:48 Respiratory Rate 18 05/05/24 11:27 Respiratory Effort Normal, Non-Labored 05/04/24 16:48 Respiratory Depth Normal 05/04/24 16:48 Respiratory Pattern Normal 05/04/24 16:48 Blood Pressure 117/86 05/05/24 11:27 Blood Pressure Position Sitting 05/04/24 13:22 Pulse Oximetry 100 05/05/24 11:27 Oxygen Delivery Method Room Air 05/05/24 11:27 Oxygen Flow Rate 0 05/05/24 11:27 Pain Level 0 05/05/24 11:27 Intake & Output 05/04/24 05/04/24 05/05/24 11:59 23:59 11:59 Intake Total 400 / 400 Balance 400 / 400 Weight 42.6 kg Intake: Oral 400 / 400 Other: Urine Appearance Clear Data Completed and Pending Labs on day of discharge: Labs from last 24 hours 05/05/24 05/04/24 05/04/24 06:30 16:33 14:33 WBC 4.19 L RBC 4.01 Hgb 13.1 Hct 37.9 MCV 95 MCH 32.7 MCHC 34.6 RDW 10.6 L Plt Count 231 MPV 10.6 Immature Gran % 0.2 Neutrophils % 38.9 Lymphocytes % 47.5 Monocytes % 6.0 Eosinophils % 6.4 Basophils % 1.0 Nucleated RBC % 0.0 Absolute Neutrophils 1.63 Absolute Lymphocytes 1.99 Absolute Monocytes 0.25 Absolute Eosinophils 0.27 Absolute Basophils 0.04 PT INR Sodium 140 Potassium 4.4 D Chloride 107 Carbon Dioxide 27.8 Anion Gap 5.2 BUN 13 Creatinine 0.7 Est GFR (CKD-EPI 2020) 117.77 Glucose 83 Calcium 8.4 L Magnesium 1.7 L Troponin I Cancelled Cancelled Triglycerides Total Cholesterol LDL Cholesterol, Calc HDL Cholesterol TSH Serum HCG, Qual Urine Color Urine Clarity Urine pH Ur Specific [place] Urine Protein Urine Ketones Urine Blood Urine Nitrite Urine Bilirubin Urine Urobilinogen Ur Leukocyte Esterase Urine Glucose Ethyl Alcohol 05/04/24 05/04/24 05/04/24 13:51 13:45 13:40 WBC 5.36 RBC 4.05 Hgb 13.3 Hct 38.9 MCV 96 H MCH 32.8 MCHC 34.2 RDW 10.8 L Plt Count 274 MPV 10.7 Immature Gran % Neutrophils % Lymphocytes % Monocytes % Eosinophils % Basophils % Nucleated RBC % Absolute Neutrophils Absolute Lymphocytes Absolute Monocytes Absolute Eosinophils Absolute Basophils PT 10.5 INR 1.0 Sodium 142 Potassium 3.4 L Chloride 104 Carbon Dioxide 31.8 Anion Gap 6.2 BUN 14 Creatinine 0.8 Est GFR (CKD-EPI 2020) 100.33 Glucose 103 Calcium 9.8 Magnesium Troponin I 4 Triglycerides 55 Total Cholesterol 183 LDL Cholesterol, Calc 90 HDL Cholesterol 82 TSH 1.30 Serum HCG, Qual Negative Urine Color Yellow Urine Clarity Clear Urine pH 6.5 Ur Specific [place] 1.010 Urine Protein Negative Urine Ketones Negative Urine Blood Negative Urine Nitrite Negative Urine Bilirubin Negative Urine Urobilinogen 0.2 Ur Leukocyte Esterase Negative Urine Glucose Negative Ethyl Alcohol < 3.0 PFSH All Active Problems (Updated 05/04/24 @ 20:02 by Viviana Aparicio NP) CVA (cerebral vascular accident) (Acute) Social History Smoking/Tobacco Use Status: Never Smoking risk assessment performed?: Yes Alcohol Intake: never Drug use: Never Substance use type: does not use Housing: house Do you feel safe at home: Yes Do you feel safe in your relationship?: Yes Time Spent with Patient Time Spent with Patient: 45-69 minutes Time was spent: preparing to see the patient(eg.review tests), ordering medications,tests, procedures, referring, communicating with other health career coordinator, indepentently interpreting results, counseling the patient and care coordination
== END 2024-05-05 13:05 | disposition home or self-care (01) ==
LOC: ER 16:17 → MS 19:18
PROVIDERS: Nurse Practitioner Family; Admitting Provider Hospitalist; Emergency Provider Emergency Medicine; PCP Nurse Practitioner Family; Visit Provider Hospitalist
DX: I63.89 Other cerebral infarction (principal); R53.1 Weakness; Z83.3 Family history of diabetes mellitus; Z83.438 Family history of other disorder of lipoprotein metabolism and other lipidemia; R29.818 Other symptoms and signs involving the nervous system; Z79.899 Other long term (current) drug therapy
CPT/HCPCS: 00123; 70496; 70498; 70553; 80048; 80061; 85027; 93005; 96374; 99285; 71046; 80320; 81003; 83735; 84443; 84484; 84703; 85025; 85610; 93010; 93306; 93880; 99223; 99239; G0378; J3490

== ENCOUNTER 2024-05-14 11:27 | Outpatient (CLI) | payer BC, MEDICAID, SELFPAY | END 2024-05-14 11:28 | disposition home or self-care (01) | PROVIDERS: PCP Nurse Practitioner Family; Visit Provider Nurse Practitioner Family | DX: I63.9 Cerebral infarction, unspecified (principal) | CPT/HCPCS: 93246 ==

== ENCOUNTER 2024-06-04 11:48 | Outpatient (CLI) | payer BC, MEDICAID, SELFPAY ==
--- NOTE | 2024-06-04 12:19 | W.CARDEVENT ---
Date of service: 06/04/24 Time of Service: 12:19 Cardiac Event Recorder Referring Provider:: Laisha Erazo Indications:: Transient cerebral ischemia Cardiac Event Note: This is a cardiac event monitor. Patient was monitored for 13 days and 14 hours. Rhythm throughout was sinus with an average heart rate of 84. Minimum was 51, maximum 165. There were very rare isolated atrial and ventricular ectopic beats. There was no atrial fibrillation, no high-grade AV block, no pauses greater than 2 seconds. Symptoms were reported which correlated to sinus rhythm, rates 80 to 95 bpm
== END 2024-06-04 11:49 | disposition home or self-care (01) ==
LOC: CARDOPNVT 11:48
PROVIDERS: PCP Nurse Practitioner Family; Visit Provider Internal Medicine Cardiovascular Disease
DX: G45.9 Transient cerebral ischemic attack, unspecified (principal)

== ENCOUNTER 2024-06-29 15:25 | Outpatient (CLI) | payer BC, MEDICAID, SELFPAY ==
[2024-07-03 13:58] LABS: LA Cascade Summary (See Note)
== END 2024-06-29 15:26 | disposition home or self-care (01) ==
LOC: LBO 15:26
PROVIDERS: PCP Nurse Practitioner Family; Visit Provider Psychiatry & Neurology Neurology
DX: Z13.89 Encounter for screening for other disorder (principal)
CPT/HCPCS: 36415; 85613; 85732; 87116

== ENCOUNTER 2024-07-28 08:56 | Outpatient (CLI) | payer BC, MEDICAID, SELFPAY ==
--- NOTE | 2024-07-28 12:28 | W.CARDEVENT ---
Date of service: 07/28/24 Time of Service: 12:28 Cardiac Event Recorder Referring Provider:: Jessica Hyde Indications:: Cerebral infarction Cardiac Event Note: This is a cardiac event monitor. Patient was monitored for 13 days and 23 hours. Rhythm throughout was sinus with an average heart rate of 84. Minimum was 47, maximum 170. 37 PVCs were recorded. There were 97 atrial premature beats. There was no atrial fibrillation, no high-grade AV block, no pauses greater than 3 seconds. No symptoms were reported
== END 2024-07-28 08:57 | disposition home or self-care (01) ==
LOC: CARDOPNVT 08:56
PROVIDERS: PCP Nurse Practitioner Family; Visit Provider Internal Medicine Cardiovascular Disease
DX: I63.9 Cerebral infarction, unspecified (principal); I49.3 Ventricular premature depolarization; I49.1 Atrial premature depolarization
CPT/HCPCS: 93248

== ENCOUNTER 2025-02-18 12:35 | Emergency (ER) | payer OTHER, SELFPAY ==
[2025-02-18 12:38] VITALS: BP 118/80; PULSE 84; RESP 20; TEMP 36.7; O2SAT 98
[2025-02-18 13:50] VITALS: BP 135/88; PULSE 81; RESP 16; O2SAT 100
--- NOTE | 2025-02-18 14:21 | ED.GENADUL_ITS ---
Discharge Plan Disposition Patient Disposition: Home Condition: Good Discharge Details Clinical Impression: Head injury, Contusion of head Primary Care Provider: Laisha Erazo ED Provider: Urvashi Perkins Home Meds and New Rx's Prescriptions: Continued sertraline 50 mg tablet 50 mg PO DAILY Qty: 30 0RF propranolol 20 mg tablet 20 mg PO BID Qty: 180 3RF Nurtec ODT 75 mg tablet,disintegrating 75 mg PO ONCE PRN (Reason: migraine headache) Qty: 24 3RF Rx Instructions: as a single dose; no more than 1 tab per day aspirin 81 mg tablet,chewable 81 mg PO DAILY Qty: 20 0RF Discharge Instructions Instructions: Minor Head Injury, Adult ED Additional Instructions: Your exam here is very reassuring, no indication for brain bleeding or more serious brain injury. Please encourage hydration and rest. Tylenol and/or Ibuprofen for discomfort. May also continue with the Nurtec as previously prescribed. Please follow up with primary care in 1-2 weeks. Brain rest can help to prevent return of your headache. Please avoid screens for the time being as this can help to prevent headaches from worsening. Sleep when needed. If you develop any new/worsening symptoms, please seek care urgently once again. Stand Alone Forms: Work Release Referrals: Penny Hurley PA [ [facility] STAFF PHYSICIAN, Medicine] Discharge Data Discharge Date/Time-TO BE ENTERED AT DEPARTURE: 02/18/25 14:40 HPI General Date/Time Provider Initiated Documentation: 02/18/25 14:04 . Limitations to Documentation: no limitations . Information obtained by: patient, family () and RN notes reviewed . History of Present Illness 34 year old F presents to the emergency department with the chief complaint of struck head on shelf, described as mild, Quality is described as aching, and is localized to the head. Patient reports no radiation. Patient started experiencing this hour(s) and it has been now resolved. No relieving factors improve symptom(s), No exacerbating factors reported . Patient notes no other symptoms.. Patient did receive the following treatments prior to arrival, none Related Data Home Medications Medication Instructions Recorded Confirmed aspirin 81 mg chewable tablet 81 mg PO DAILY #20 tabs 05/05/24 02/18/25 propranolol 20 mg tablet 20 mg PO BID #180 tabs 02/1602/18/25 rimegepant 75 mg disintegrating 75 mg PO ONCE PRN migr nini 02/16/25 02/18/25 tablet (Nurtec ODT) headache #24 tabs sertraline 50 mg tablet 50 mg PO DAILY #30 tabs 01/2102/18/25 Previous Rx's Medication Instructions Recorded aspirin 81 mg chewable tablet 81 mg PO DAILY #20 tabs 05/05/24 propranolol 20 mg tablet 20 mg PO BID #180 tabs 02/16 rimegepant 75 mg disintegrating 75 mg PO ONCE PRN migr nini 02/16/25 tablet (Nurtec ODT) headache #24 tabs sertraline 50 mg tablet 50 mg PO DAILY #30 tabs 01/21 12/14 Allergies Allergy/AdvReac Type Severity Reaction Status Date / Time No Known Allergies Allergy Unverified 02/18/25 12:45 General Stated Complaint: HeadInjury MIKE: 3 Review of Systems Constitutional Constitutional: Reports as per HPI, Denies chills, Denies fever(s), Denies frequent falls, Reports headache(s) and Denies weakness Eyes Eyes: Reports as per HPI, Denies blurry vision and Denies change in vision ENT Ears, Nose, Mouth, and Throat: Reports headache(s) and Denies neck pain Cardiovascular Cardiovascular: Reports as per HPI, Denies chest pain, Denies lightheadedness and Denies dyspnea Respiratory Respiratory: Reports as per HPI, Denies chest congestion, Denies cough and Denies dyspnea Gastrointestinal Gastrointestinal: Reports as per HPI, Denies abdominal pain, Denies change in bowel habits, Denies nausea and Denies vomiting Musculoskeletal Musculoskeletal: Reports as per HPI, Denies back pain, Denies neck pain and Denies numbness Integumentary/Breasts Skin/Breast: Reports as per HPI and Denies rash Neurologic Neurologic: Reports as per HPI, Denies abnormal speech, Denies behavioral changes, Denies confusion, Denies frequent falls, Reports headache(s), Denies localized weakness, Denies numbness, Denies sensory deficit and Denies weakness Psychiatric Psychiatric: Denies behavioral changes and Denies confusion Exam Const General: cooperative, healthy appearing, uncomfortable, no acute distress, well developed and well groomed Nutritional Appearance: average body habitus and well nourished Orientation: alert, awake and oriented x3 HENMT Head: normal to inspection, no palpable skull fracture, normocephalic and atraumatic Ears: hearing grossly normal bilaterally and external ears normal General nose exam: external nose normal Mouth: oral mucosae normal and moist mucous membranes Throat: posterior oropharynx normal Eyes General: appearance normal, both eyes and all related structures Alignment and Position: alignment normal Periorbital: periorbital findings normal Eyelids: eyelids normal Sclera: sclerae normal Cornea: corneas normal Pupils: PERRL EOM: EOM intact bilaterally Neck Neck: normal visual inspection and full ROM Resp Effort & Inspection: normal respiratory effort, able to speak in complete sentences and no respiratory distress Auscultation: clear to auscultation bilaterally, no rales, no rhonchi and no wheezes Cardio Rate: regular rate Rhythm: regular rhythm Heart Sounds: S1 normal and S2 normal Back/Spine/Pelvis Cervical Spine: normal cervical lordosis and cervical ROM normal Skin General skin exam: no rashes or lesions noted Neuro General: patient alert, patient awake and patient oriented x3 Cranial Nerves: CN's II-XI intact bilaterally Cognition: normal cognition Speech: speech normal Gait: normal gait Motor: muscle tone normal throughout, strength 5/5 throughout, no pronator drift, no movement abnormalities noted and no fasciculations Sensory Exam: no sensory deficits noted Coordination: [id number] test normal Course Vital Signs Vital signs: Vital Signs Temperature 36.7 C 02/18/25 12:38 Pulse 84 02/18/25 12:38 Respiratory Rate 20 02/18/25 12:38 Blood Pressure 118/80 02/18/25 12:38 Pulse Oximetry 98 02/18/25 12:38 Temperature 36.7 C 02/18/25 12:38 Pulse 81 02/18/25 13:50 Respiratory Rate 16 02/18/25 13:50 Respiratory Effort Normal, Non-Labored 02/18/25 13:50 Respiratory Depth Normal 02/18/25 13:50 Respiratory Pattern Normal 02/18/25 13:50 Blood Pressure 135/88 02/18/25 13:50 Blood Pressure Mean 103 02/18/25 13:50 Blood Pressure Position Sitting 02/18/25 13:50 Pulse Oximetry 100 02/18/25 13:50 Oxygen Delivery Method Room Air 02/18/25 13:50 Oxygen Flow Rate 0 02/18/25 13:50 Medical Decision Making Patient is a 34-year-old female, brought in by at recommendation of her place of appointment, with chief complaint of striking her head while at work. 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 Suffered injury to the left occiput. Denies actually falling to the ground. Denies any significant continued headache. Denies any loss of consciousness or confusion. No nausea or vomiting. No persistent symptoms. Patient does have migraines at baseline and did take her Nurtec which seem to have prevented any worsening of her headache. Has otherwise been acting at her baseline. Denies other injury at the time of the incident. On exam, patient appears nontoxic. She resting comfortably no acute distress hemodynamically stable. No objective findings to suggest trauma. I do not appreciate any area of swelling. No break in the skin. She is neurologically intact. No confusion. Given that the mechanism of injury was fairly mild and the patient is otherwise neurologically intact at this time, I do not see indication for imaging, no suspicion at this point for intracranial hemorrhage or more significant cranial injury. Feel patient safe for discharge to home. She does have plan if she has recurrent headaches. Did discuss supportive care and encouraged this. Encouraged hydration. Advised that she abstain from significant stimulation and encourage brain rest. Return to work note was given at patient's request. Return precautions were discussed. All of her questions and concerns were addressed and patient is in agreement with this plan. Dictation completed using [employer] dictation software. Please excuse any errors or payment collector anomalies that may remain. PFSH All Active Problems (Updated 02/18/25 @ 14:22 by JERARDO Merida) Contusion of head (Acute) Head injury (Acute) Migraine headache without aura (Acute) Chronic headache (Acute) Anxiety (Chronic) CVA (cerebral vascular accident) (Acute) Medical History Benign focal childhood epilepsy Migraine headache with aura Surgical History No pertinent past surgical history Family History Mother Hypertension Hyperlipidemia Diabetes Social History Smoking/Tobacco Use Status: Never Smoking risk assessment performed?: Yes Alcohol Intake: never Drug use: Never Substance use type: does not use Housing: house Number of Children: 0 current occupation: School counselor What is your relationship status?: Panel score (0-1 are the most socially isolated patients): 1 Do you feel safe at home: Yes Do you feel safe in your relationship?: Yes
[2025-02-18 14:39] VITALS: BP 121/81; PULSE 86; RESP 16; O2SAT 100
== END 2025-02-18 14:40 | disposition home or self-care (01) ==
PROVIDERS: Emergency Provider Physician Assistant; PCP Nurse Practitioner Family
DX: S00.83XA Contusion of other part of head, initial encounter (principal); X58.XXXA Exposure to other specified factors, initial encounter
CPT/HCPCS: 99282 ×2